=== PATIENT | female | born 1980 | race Caucasian/White ===

== ENCOUNTER 2016-09-02 01:04 | Emergency (ER) | payer OTHER ==
[~2016-09-02] VITALS: Ht 160 cm; Wt 65.8 kg
[2016-09-02 01:56] VITALS: BP 122/83
[2016-09-02] MEDS ORDERED: CLIN300C8 PO (02:08)
[2016-09-02] MEDS ORDERED: cefTRIAXone SODIUM 1 GM VIAL IV ONE (02:08)
[2016-09-02] MEDS ORDERED: CEPH-263 PO (02:08)
--- NOTE | 2016-09-02 02:08 | PHYS DOC ---
Past History Past Medical History: No Pertinent History, Other Past Surgical History: No Surgical History, Other Smoking: Cigarettes, Less than 1pk/day Alcohol Use: None Drug Use: None Adult General Chief Complaint Chief Complaint: FEVER HPI HPI 36 -year-old female presenting to the emergency department today with left foot pain and swelling with a fever at home. Her pain is sharp moderate intermittent and worse with walking and without alleviating factors. She reports mild redness of the left foot. Otherwise she has a history of drug use. She denies suicidal or homicidal ideation. Review of systems is negative for chest pain shortness of breath cough. She denies dysuria polyuria or back pain. She denies hematuria. All other review of systems is negative unless otherwise noted in history of present illness. ED course: 36-year-old female presenting to the emergency department with left foot pain and swelling with fever and mild redness. Vital signs showed mild tachycardia and fever. The patient was given oral Tylenol and intramuscular Rocephin and discharged home with oral Keflex to follow up with her PCP in 2 days. Clinical presentation suggestive of cellulitis. The patient was then discharged home in stable condition to follow up with their primary care physician over the next 2-3 days. They were to return if their symptoms worsened or if they were concerned for any reason. [id number] discharge instructions and return precautions were given. Patient's questions were answered to their satisfaction. Patient is comfortable plan. Review of Systems Review of Systems see above Allergies Allergies Allergies Coded Allergies Type Severity Reaction Last Updated Verified No Known Drug Allergies 07/19/13 No Physical Exam Physical Exam Constitutional: Well developed, well nourished, no acute distress, non-toxic appearance. [] HENT: Normocephalic, atraumatic, bilateral external ears normal, oropharynx moist, no oral exudates, nose normal. [] Eyes: PERRLA, EOMI, conjunctiva normal, no discharge. [] Neck: Normal range of motion, no tenderness, supple, no stridor. [] Cardiovascular:Heart rate regular rhythm, no murmur [] Lungs & Thorax: Bilateral breath sounds clear to auscultation [] Abdomen: Bowel sounds normal, soft, no tenderness, no masses, no pulsatile masses. [] Skin: Warm, dry. The patient has picking scars all over her skin. She does have mild erythema of the left lower extremity. Mildly warm to touch. Clinically suggestive of cellulitis. Back: No tenderness, no CVA tenderness. [] Extremities: No tenderness, no cyanosis, no clubbing, ROM intact, no edema. [] Neurologic: Alert and oriented X 3, normal motor function, normal sensory function, no focal deficits noted. [] Psychologic: Affect normal, judgement normal, mood normal. [] EKG EKG [] Radiology/Procedures Radiology/Procedures [] Course & Med Decision Making Course & Med Decision Making Pertinent Labs and Imaging studies reviewed. (See chart for details) [] Dragon Disclaimer Dragon Disclaimer This chart was dictated in whole or in part using Voice Recognition software in a busy, high-work load, and often noisy Emergency Department environment. It may contain unintended and wholly unrecognized errors or omissions. Departure Departure: Impression: Primary Impression: Left leg cellulitis Disposition: HOME, SELF-CARE Condition: STABLE Referrals: PCP,TARIQ (PCP) ANABEL HEAD MD Patient Instructions: Cellulitis Additional Instructions: Thank you for allowing us to participate in your care today. Followup with your primary care physician in 3 days if your symptoms do not improve. Call your Primary Doctor tomorrow and inform them of your visit today. If you do not have a primary care provider you can ask for a list of our primary care providers. Return to the emergency department you have any new or concerning findings. This should be evaluated by the primary care physician and any necessary consulting services for continued management within a few days after discharge. Return to emergency room if you have any new or concerning symptoms including but not limited to fever, chills, nausea, vomiting, intractable pain, any new rashes, chest pain, shortness of air, uncontrolled bleeding, difficulty breathing, and/or vision loss. Scripts Clindamycin Hcl (CLINDAMYCIN HCL) 300 Mg Capsule 1 CAP PO TID, #21 CAP Prov: ANJU AGUILAR MD 09/02/16 Cephalexin (KEFLEX) 250 Mg Capsule 1 CAP PO QID, #40 CAP Prov: ANJU AGUILAR MD 09/02/16 ANJU AGUILAR MD Sep 02, 2016 02:08
[2016-09-02] MEDS ORDERED: cefTRIAXone IM 1 GM VIAL IM ONE (02:15)
[2016-09-02] MEDS ORDERED: ACETAMINOPHEN 325 MG TABLET PO ONE (02:15)
== END 2016-09-02 02:26 | disposition home or self-care (01) ==
LOC: ER 01:04
DX: L03.116 Cellulitis of left lower limb (principal); F17.210 Nicotine dependence, cigarettes, uncomplicated
CPT/HCPCS: 96372; 99283; J0696